=== PATIENT | female | born 2000 | race Caucasian/White ===

== ENCOUNTER 2020-05-10 07:11 | Emergency (ER) | payer BC, MEDICAID, OTHER ==
--- NOTE | 2020-05-10 07:38 | EDM.PDOC ---
ED HPI GENERAL MEDICAL PROBLEM - General Chief Complaint: Lower Extremity Injury/Pain Stated Complaint: left back and thigh pain Time Seen by Provider: 05/10/20 07:35 Source of Information: Reports: Patient, Old Records ([facility] EMR. No paper hospital chart available.) History Limitations: Reports: No Limitations - History of Present Illness INITIAL COMMENTS - FREE TEXT/NARRATIVE: The patient drove herself to the emergency room via private automobile for evaluation of 7-11/30 chronic left lower back pain with intermittent radiation into the left lateral anterior thigh with symptoms starting after she went ice fishing on 05/08/2019. Yesterday she noted some nonspecific patchy purple rash on her anterior left thigh, which resolved spontaneously on their own this morning. She denies any previous history of low back pain, fall, injury, paresthesias, neurological deficits, etc. No recent history of abdominal pain, heartburn, nausea, diarrhea, melena, gross hematochezia, or any food intolerance, including fatty foods, etc.. She denies any gross hematuria, colic, or the UTI symptoms, although she is currently being treated for bacterial vaginosis with provider evaluation on 05/07 by her history. The patient also denies any recent fever, cough, wheezing, dyspnea, etc.. Onset: Gradual Onset Date: 05/08/20 Onset Time: 10:00 Duration: Constant Location: Reports: Back, Lower Extremity, Left, Radiates to (As above). Denies: Head, Face, Neck, Chest, Abdomen, Pelvis, Upper Extremity, Left, Upper Extremity, Right, Lower Extremity, Right Quality: Reports: Throbbing Improves with: Reports: Rest Worsens with: Reports: Movement Context: Reports: Other (As above). Denies: Sick Contact, Trauma Associated Symptoms: Denies: Confusion, Chest Pain, Cough, Diaphoresis, Fever/Chills, Headaches, Loss of Appetite, Malaise, Nausea/Vomiting, Seizure, Shortness of Breath, Syncope, Weakness Treatments [employer] RE[employer]: Reports: Other (see below) (None) left lower back pain Pain Score (Numeric/FACES): 7 - Related Data Allergies Allergy/AdvReac Type Severity Reaction Status Date / Time miconazole [From Monistat 7] Allergy Swelling Verified 05/10/20 07:14 morphine Allergy Vomiting Verified 05/10/20 07:12 Home Meds: Home Meds Cyclobenzaprine [Flexeril] 10 mg PO TID PRN #30 tab 05/10/20 [Rx] Fluconazole [Diflucan] 150 mg PO DAILY 05/10/20 [History] cephALEXin [Cephalexin] 500 mg PO Q12HR 05/10/20 [History] metroNIDAZOLE [Metrogel-Vaginal] 1 applic VG BEDTIME 05/10/20 [History] Past Medical History HEENT History: Reports: Otitis Media Gastrointestinal History: Reports: Cholelithiasis [employer] History: Reports: . Denies: Spontaneous : 1 Para: 1 LMP (Approximate): Other (See Below) Other [employer] History: Full term without complications during pregnancies or deliveries, although some possible implantation of bleeding with her first . Irregular menses of unknown etiology with somewhat short LMP 1 week ago. - Past Surgical History HEENT Surgical History: Reports: Adenoidectomy, Myringotomy w Tube(s), Tonsillectomy, Other (See Below) Other HEENT Surgeries/Procedures: Tonsillectomy and adenoidectomy with concurrent bilateral PE tube placement in March 2017 at age 17. GI Surgical History: Reports: Cholecystectomy, ERCP, Other (See Below) Other GI Surgeries/Procedures: ERCP with pancreatic duct stent placement and subsequent cholecystectomy in January 2020. Social & Family History - Tobacco Use Tobacco Use Status *Q: Current Every Day Tobacco User Tobacco Use Within Last Twelve Months: Cigarettes Years of Tobacco use: 3 Packs/Tins Daily: 0.3 Packs/Tins Daily Comment: Started smoking at age 17. Used Tobacco, but Quit: No Smoking Cessation Information Provided To Patient: Yes - Living Situation & Occupation Occupation: Employed Social History Comment: [employer] in [place] Review of Systems - Review of Systems Review Of Systems: Comprehensive ROS is negative, except as noted in HPI. ED EXAM, GENERAL - Physical Exam Exam: See Below Exam Limited By: No Limitations General Appearance: Alert, WD/WN, No Apparent Distress, Anxious (Mild) Head: Atraumatic, Normocephalic Neck: Normal Inspection, Supple, Non-Tender, Full Range of Motion Respiratory/Chest: No Respiratory Distress, Lungs Clear, Normal Breath Sounds, No Accessory Muscle Use, Chest Non-Tender. No: Pleural Rub, Retractions Peripheral Pulses: 2+: Radial (L), Radial (R), Femoral (L), Dorsalis Pedis (L), Dorsalis Pedis (R) GI/Abdominal: Normal Bowel Sounds, Soft, Non-Tender, No Organomegaly, No Distention, No Abnormal Bruit, No Mass. No: Guarding (Female) Exam: Deferred Rectal (Female) Exam: Deferred Back Exam: Full Range of Motion, Muscle Spasm (Mild left lower lumbar), Paraspinal Tenderness (Left lower lumbar). No: CVA Tenderness (L), CVA Tenderness (R), Vertebral Tenderness Extremities: Normal Inspection, Normal Range of Motion, Non-Tender, No Pedal Edema, Normal Capillary Refill. No: Alfredo's Sign Neurological: Alert, Oriented, CN II-XII Intact, Normal Cognition, Normal Gait, Normal Reflexes, No Motor/Sensory Deficits Psychiatric: Anxious (Mild), Depressed Mood (Borderline) Skin Exam: Warm, Dry, Intact, Normal Color, No Rash, Tattoo(s) (Multiple). No: Diaphoretic, Ecchymosis, Petechiae Lymphatic: No Adenopathy Course - Vital Signs Last Recorded V/S: Last Vital Signs Temp 36.2 C 05/10/20 07:23 Pulse 91 05/10/20 07:23 Resp 16 05/10/20 07:23 BP 131/80 05/10/20 07:23 Pulse Ox 100 05/10/20 07:23 Vital Signs - 24 hr 05/10/20 07:23 Temperature [ 36.2 C Temporal] Pulse, 91 Peripheral [ Left Pulse Oximetry] Respiratory 16 Rate Blood Pressure 131/80 [Left Upper Arm ] O2 Sat by Pulse 100 Oximetry - Orders/Labs/Meds Orders: Active Orders 24 hr Category Date Time Status Obtain Past Medical Record [OM.PC] Routine Oth 05/10/20 07:39 Active Labs: None Meds: None - Radiology Interpretation Free Text/Narrative:: None Departure - Departure Time of Disposition: 08:10 Disposition: Home, Self-Care 01 Condition: Good Clinical Impression: Tobacco abuse counseling Low back pain Qualifiers: Chronicity: acute Back pain laterality: left Sciatica presence: with sciatica Sciatica laterality: sciatica of left side Qualified Code(s): M54.42 - Lumbago with sciatica, left side - Discharge Information *PRESCRIPTION DRUG MONITORING PROGRAM REVIEWED*: Not Applicable *COPY OF PRESCRIPTION DRUG MONITORING REPORT IN PATIENT LULA: Not Applicable Prescriptions: Cyclobenzaprine [Flexeril] 10 mg PO TID PRN #30 tab PRN Reason: Spasms Instructions: Steps to Quit Smoking, [id number], Health Risks of Smoking, Cyclobenzaprine tablets, Acute Back Pain, Adult Referrals: PCP,Unknown [Ordering Only Provider] - Forms: ED Department Discharge, ED Return to Work/School Form Additional Instructions: 1. Follow up with your regular provider in 10-14 days as needed, if symptoms persist. Bring these discharge instructions with you to that visit.. 2. Tylenol 650 mg by mouth every 4 hours and/or OTC ibuprofen 2-3 tabs by mouth every 6 hours with food as directed./needed. You may stagger these medications for 48-72 hours only, which essentially means that you are receiving a pain medication about every 2 hours. 3. BenGay or equivalent, heating pad, and/or ice packs as directed. 4. Immediately after this visit verify that your cellular telephone's voicemail has been activated and is empty. Also verify that your home telephone's answering machine is operating properly and has space to receive messages. Note that it is sometimes necessary for us to be able to contact you at a later date to discuss your medical care. 5. Please remember that we are ALWAYS here for you and want to answer any questions you may have. Feel free to call the hospital any time and we call you back LION. 6. Work excuse- See Form 7. Sedation, dry mouth, etc. precautions with Flexeril/oxybutynin as discussed. You may cut the medication tablets in half, if needed. Sepsis Event Note (ED) - Evaluation Sepsis Screening Result: No Definite Risk - Focused Exam Vital Signs: Vital Signs Temp Pulse Resp BP Pulse Ox 05/10/20 07:23 36.2 C 91 16 131/80 100 - Problem List & Annotations (1) Low back pain SNOMED Code(s): 861606238 Code(s): M54.5 - LOW BACK PAIN Status: Acute Priority: High Onset Date: 05/08/20 Annotation/Comment:: Symptomatic relief as per discharge instructions. Note no neurological deficits, rash, etc. during physical exam as above. Excellent pulses also present. Work excuse provided. Activity restrictions were discussed. She was provided in the emergency room prescription of Flexeril with sedation, etc. precautions provided. Qualifiers: Chronicity: acute Back pain laterality: left Sciatica presence: with sciatica Sciatica laterality: sciatica of left side Qualified Code(s): M54.42 - Lumbago with sciatica, left side (2) Tobacco abuse counseling SNOMED Code(s): 218088556, 808436080, 537869026 Code(s): Z71.6 - TOBACCO ABUSE COUNSELING Status: Chronic Priority: Me dium Annotation/Comment:: Tobacco cessation strongly encouraged with information provided. - Problem List Review Problem List Initiated/Reviewed/Updated: Yes - My Orders Last 24 Hours: My Active Orders 05/10/20 07:39 Obtain Past Medical Record [OM.PC] Routine - Assessment/Plan Last 24 Hours: My Active Orders 05/10/20 07:39 Obtain Past Medical Record [OM.PC] Routine Assessment:: As above Plan: As above. Extensive precautions were given to the patient, who is in agreement with the treatment plan. See Patient Instructions for further treatment and plan.
== END 2020-05-10 08:10 | disposition home or self-care (01) ==
LOC: LL.ED 07:11
DX: M54.42 Lumbago with sciatica, left side (principal); Z71.6 Tobacco abuse counseling; Z72.0 Tobacco use; Z88.5 Allergy status to narcotic agent; Z88.1 Allergy status to other antibiotic agents
CPT/HCPCS: 99283